=== PATIENT | female | born 1960 | race Caucasian/White ===

== ENCOUNTER → 2020-02-19 12:32 | Outpatient (BNVA) | payer MEDICAID, SELFPAY | PROVIDERS: Referring Provider Family Medicine; Visit Provider Specialist | DX: R29.90 Unspecified symptoms and signs involving the nervous system (principal); E11.40 Type 2 diabetes mellitus with diabetic neuropathy, unspecified; F17.210 Nicotine dependence, cigarettes, uncomplicated | CPT/HCPCS: 99204 ==

== ENCOUNTER → 2020-08-19 10:27 | Outpatient (BNVA) | payer MEDICAID, SELFPAY | PROVIDERS: PCP Family Medicine; Visit Provider Specialist | DX: M54.30 Sciatica, unspecified side (principal); M54.9 Dorsalgia, unspecified; F17.210 Nicotine dependence, cigarettes, uncomplicated | CPT/HCPCS: 99214 ==

== ENCOUNTER 2020-08-24 13:20 | Outpatient (CLI) | payer MEDICAID, SELFPAY ==
--- NOTE | 2020-08-24 13:45 | MR_ITS ---
WS: [id number] MRI LUMBAR SPINE NONCONTRAST HISTORY: M54.30 - Sciatica, unspecified side COMPARISON: None available. TECHNIQUE: Sagittal and axial multisequence imaging is submitted. Mild cervical narrowing at C5-6 due to disc and osteophyte disease. LEFT convex curvature of the lumbar spine. Benign hemangiomas at L2 and L4. No fractures. Small amoun t of reactive marrow edema along the endplates of L2, L3 and L4. Disc spaces are mildly narrowed with desiccation. Conus terminates normally at L1. L1-L2: Diffuse osteophytic ridging and annular disc bulging. Mild bilateral foraminal stenosis. Small amount of fluid in the facet joints. L2-L3: Diffuse mild annular disc bulging and osteophytic ridging with mild ligamentum flavum hypertro phy. Mild narrowing of the foramen, RIGHT greater than LEFT. There is mild narrowing of the RIGHT sub articular recess. L3-L4: Diffuse asymmetric disc bulging to the RIGHT. There is an additional moderate sized broad-base d disc protrusion beginning centrally and extending into the RIGHT into the lateral recess, subarticu lar recess and foramen. Deformity of the thecal sac. There is significant encroachment upon the L3 an d L4 nerve roots. Mild LEFT foraminal stenosis. L4-L5: Mild annular disc bulging. 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 Mild ce ntral, bilateral subarticular recess and foraminal stenosis. L5-S1: Central disc protrusion with annular fissure. Very minimal contact on the RIGHT S1 nerve root. No displacement or significant stenosis. MR/MR lumbar spine wo con* [id number] IMPRESSION: 1. Large broad-based disc protrusion at L3-4 causing deformity of the thecal s ac. Asymmetric disc protrusion causes severe encroachment into the RIGHT latera l recess, subarticular recess and foramen. 2. Mild central, bilateral subarticular recess and foraminal stenosis at L4-5. 3. Mild bilateral foraminal stenosis at L1-2. 4. Advanced degenerative disc disease most significant at L3-4. 5. LEFT scoliosis lumbar spine.
== END 2020-08-24 13:21 | disposition home or self-care (01) ==
LOC: RADWPI 13:27
PROVIDERS: PCP Family Medicine; Visit Provider Specialist
DX: M54.30 Sciatica, unspecified side (principal); M41.86 Other forms of scoliosis, lumbar region; M51.36 Other intervertebral disc degeneration, lumbar region; M48.061 Spinal stenosis, lumbar region without neurogenic claudication; M51.26 Other intervertebral disc displacement, lumbar region
CPT/HCPCS: 72148